=== PATIENT | male | born 1985 | race Caucasian/White ===

== ENCOUNTER → 2018-08-04 12:58 | Outpatient (CLI) | payer OTHER, SELFPAY ==
--- NOTE | 2018-08-04 | DI.MRI.S_ITS ---
PROCEDURE: MR SHOULDER RT W CON INDICATIONS: Pain in shoulder - right TECHNIQUE: After the administration of 12 mL of dilute intra-articular Gadolinium contrast, oblique coronal T1 and T2 spin echo with fat saturation, oblique sagittal T1 spin echo with and without fat saturation, oblique sagittal T2 fast spin echo with fat saturation, axial T1 spin echo with fat saturation through the shoulder. COMPARISON: [facility], , ME SHOULDER INJECTION MR/CT RT, 08/04/2018, 13:13. FINDINGS: Image quality: Excellent. Rotator cuff: Mild articular surface fraying and junction of the supraspinatus and infraspinatus tendons. Teres minor and subscapularis tendons appear intact. No atrophy of the rotator cuff musculature. Bones and bursae: No bone marrow contusions or fractures. No acromioclavicular joint degeneration. The acromion demonstrates conventional anatomy, without an os acromiale. Capsule and soft tissues: A posterosuperior labral tear is seen with associated 2-3 mm paralabral cyst on image 8 series 6. The adjacent glenoid rim demonstrate sclerosis and spurring. No definite posterior subluxation of the humeral head relative to the glenoid. Additional tear involving the anteroinferior labrum is seen on image 15 series 6. There is adjacent chondral loss and degenerative changes in the glenoid. Thickening of the superior glenohumeral ligament raising the possibility of age-indeterminate sprain. There is probable incidental sub-labral foramen, although differential includes superior extension of the anteroinferior labral tear The long head of the biceps tendon demonstrates normal location and morphology. The rotator interval appears normal, without fibrosis. The coracohumeral ligament is of normal thickness. No intra-articular bodies. IMPRESSION: Posterosuperior labral tear. Associated 3 mm paralabral cyst. Additional anteroinferior labral tear. Mild articular surface fraying at the junction of the supraspinatus and infraspinatus tendons. Age-indeterminate sprain of the superior glenohumeral ligament Dictated by: Yair Ramirez M.D. on 08/04/2018 at 14:49 Approved by: Yair Ramirez M.D. on 08/04/2018 at 14:59
--- NOTE | 2018-08-04 | DI.RAD.S_ITS ---
PROCEDURE: FL SHOULDER INJECTION MR/CT RT INDICATIONS: Pain in unspecified shoulder TECHNIQUE: The indications, alternatives, benefits, risks, and complications of the procedure were explained to the patient. Written informed consent was obtained and placed in the chart. The shoulder was examined fluoroscopically and a site for needle placement chosen for entry into the glenohumeral joint from an anterior approach. The skin was prepped and draped in a sterile fashion, and 1% lidocaine infiltrated from skin down to joint capsule. A spinal needle was inserted into the glenohumeral joint, and a small amount of iodinated contrast media injected to confirm intra-articular placement of the needle tip. This was followed by approximately 12 mL dilute solution of a gadolinium containing MR contrast agent. The needle was removed and a dressing was applied. The patient was given postprocedural instructions and sent to the MR suite for MR imaging. FINDINGS: A single fluoroscopic spot image demonstrates intra-articular location of injected iodinated contrast. IMPRESSION: Successful fluoroscopically guided administration of dilute Gadolinium solution into the shoulder joint for MR arthrogram. Dictated by: Yair Ramirez M.D. on 08/04/2018 at 15:29 Approved by: Yair Ramirez M.D. on 08/04/2018 at 15:29
== END ==
PROVIDERS: Visit Provider Radiology Diagnostic Radiology
DX: M25.511 Pain in right shoulder (principal); S43.491A Other sprain of right shoulder joint, initial encounter
CPT/HCPCS: 23350; 73222; 77002

== ENCOUNTER → 2018-08-07 19:03 | Outpatient (CLI) | payer OTHER, SELFPAY ==
--- NOTE | 2018-08-07 19:05 | DI.MRI.S_ITS ---
PROCEDURE: MR KNEE RT WO CON INDICATIONS: ground level fall onto right side TECHNIQUE: Noncontrast sagittal PD fast spin echo and T2 fast spin echo with fat saturation, sagittal 3-D FLASH with fat saturation; coronal T1 spin echo and PD fast spin echo with fat saturation, and axial PD fast spin echo with fat saturation through the knee. COMPARISON: None. FINDINGS: Image quality: Excellent. Menisci: Complex oblique tear involving posterior horn of medial meniscus is seen extending to inferior articulating surface. There is no focal lateral meniscal tear. The meniscal root ligaments appear intact. Cruciate ligaments: The anterior and posterior cruciate ligaments appear intact. Medial structures: The medial collateral ligament appears intact. The posterior oblique ligament, semimembranosus tendon insertions, oblique popliteal ligament, and meniscocapsular junction appear intact. Visualized portions of the pes anserinus tendons appear normal. No abnormal bursal fluid. Lateral structures: The lateral collateral ligament, long and short heads of the biceps femoris tendon appear intact. The popliteus tendon appears normal; the popliteofibular ligament appears intact. The posterosuperior and anteroinferior popliteomeniscal fascicles appear intact. The arcuate and fabellofibular ligaments appear intact, on either side of the lateral inferior geniculate artery. Iliotibial band appears normal. Anterior structures: Distal quadriceps tendon appears intact. There is thickening of the distal patellar tendon near its anterior tibial insertion, suggestive of distal patellar tendinosis. Patellar alignment is normal. No femoral trochlear dysplasia or ventral trochlear prominence. No edema in the infrapatellar fat pad. Bones and cartilage: Fragmented appearance involving tibial tuberosity near patella tendon insertion is seen suggestive of old healed Adalberto-Schlatter disease. No bone marrow contusions or fractures. The cartilage of the medial and lateral femorotibial compartments, as well as the patellofemoral compartment, appears normal in thickness. Joint space: There is physiologic knee joint fluid. No Clement's cyst. Normal appearing synovial plicae are incidentally noted. IMPRESSION: 1. Suggestion of old healed Adalberto-Schlatter disease involving tibial tuberosity near patella tendon insertion side and suggestion of mild patellar tendinosis. No marrow edema. No fracture or dislocation. 2. Suggestion of complex tear involving posterior horn of medial meniscus extending to inferior articulating surface. No evidence of focal lateral meniscal tear. 3. Cruciate ligaments are intact. Dictated by: Everardo Antonio M.D. on 08/08/2018 at 11:19 Approved by: Everardo Antonio M.D. on 08/08/2018 at 11:23
== END ==
PROVIDERS: Visit Provider Radiology Diagnostic Radiology
DX: M25.561 Pain in right knee (principal); S83.231A Complex tear of medial meniscus, current injury, right knee, initial encounter; W18.30XA Fall on same level, unspecified, initial encounter
CPT/HCPCS: 73721